=== PATIENT | male | born 1990 | race Hispanic/Latino ===

== ENCOUNTER 2020-12-29 19:30 | Emergency (ER) | payer SELFPAY ==
[2020-12-29] MEDS ORDERED: BUPIVACAINE 0.5% PF 10 ML VIAL ONE (21:02)
[2020-12-29] MEDS ORDERED: HYDROCODONE/APAP 7.5/325 MG TAB ONE (21:02)
[2020-12-29] MEDS ORDERED: LIDOCAINE 1% W/EPI 1:100,000 MDV 20 ML VIAL ONE (21:02)
--- NOTE | 2020-12-29 21:30 | EDPHYS ---
Physician Documentation [facility] Name: Marcelino Schroeder Age: 30 yrs Sex: Male : 1990 Arrival Date: 12/29/2020 Time: 19:37 Bed 15 Private MD: ED Physician Tiffany Byrd HPI: 12/29 20:40 This 30 yrs old Male presents to ER via Ambulatory with complaints of BUMP ON cp LOWER BACK. 20:40 the patient presents with a swollen area of the coccyx. cp 20:40 Description: draining, swollen, tense. Onset: The symptoms/episode began/occurred 1 cp day(s) ago. Possible cause(s): unknown. Associated signs and symptoms: Pertinent negatives: fever. Historical: - Allergies: 19:43 No Known Allergies; ak2 - Immunization history:: Adult Immunizations up to date. - Social history:: Smoking status: Patient denies any tobacco usage or history of. ROS: 20:44 Eyes: Negative for injury, pain, redness, and discharge. cp 20:44 Constitutional: Negative for body aches, chills, fever, poor PO intake. 20:44 Cardiovascular: Negative for chest pain. 20:44 Respiratory: Negative for cough. 20:44 Abdomen/GI: Negative for abdominal pain. 20:44 Back: Positive for pain at rest, of the coccyx. 20:44 Neuro: Negative for altered mental status, headache, weakness. 20:44 All other systems are negative. Exam: 20:50 Constitutional: The patient appears in no acute distress, alert, awake, non-toxic, well cp developed, well nourished, uncomfortable. 20:50 Head/Face: Normocephalic, atraumatic. cp 20:50 Chest/axilla: Inspection: normal. 20:50 Cardiovascular: Rate: tachycardic. 20:50 Respiratory: the patient does not display signs of respiratory distress, Respirations: normal. 20:50 Abdomen/GI: Exam negative for discomfort, distension, guarding, Inspection: abdomen appears normal. 20:50 Skin: abscess, that is moderate sized, of the coccyx, with drainage, that is purulent. Vital Signs: 19:41 BP 142 / 89; Pulse 105; Resp 18; Temp 98.3(T); Pulse Ox 100% ; Weight 95.25 kg; Height ak2 5 ft. 10 in. (177.80 cm); 21:40 BP 133 / 75; Pulse 95; Resp 17; Pulse Ox 98% ; rr5 19:41 Body Mass Index 30.13 (95.25 kg, 177.80 cm) ak2 Procedures: 21:30 I \T\ D: Incision and drainage was performed for an abscess of the coccyx Prepped with cp Betadine, Anesthetized with 8 ccs of 50/50 mixture 1% lidocaine with epi and 0.5% marcaine. Incised with #11 blade. Drained moderate amount purulent fluid. Cultures obtained. Packed with iodoform gauze, Dressing: sterile 4x4 gauze, the patient tolerated the procedure well. MDM: 20:17 Patient medically screened. cp 21:00 Differential diagnosis: abscess, cellulitis. cp 21:30 Data reviewed: vital signs, nurses notes. cp 21:30 Counseling: I had a detailed discussion with the patient and/or guardian regarding: the cp historical points, exam findings, and any diagnostic results supporting the discharge/admit diagnosis, to return to the emergency department if symptoms worsen or persist or if there are any questions or concerns that arise at home. Response to treatment: the patient's symptoms have markedly improved after treatment, and as a result, I will discharge patient. 12/29 20:34 Order name: Wound Culture 12/29 20:34 Order name: I\T\D Setup; Complete Time: 20:50 cp Administered Medications: 20:49 Drug: Hydrocodone-Acetaminophen (7.5 mg-325 mg) 1 tabs Route: PO; ea 21:40 Follow up: Response: No adverse reaction; RASS: Alert and Calm (0) rr5 21:10 Drug: Marcaine (bupivacaine) (0.5 %) 10 ml {Note: per provider.} Volume: 10 ml; Route: ea Infiltration; 21:40 Follow up: Response: No adverse reaction rr5 21:10 Drug: Lidocaine-Epinephrine -1%: (1:100,000) 10 ml {Note: per provider.} Volume: 20 ml; ea Route: Infiltration; 21:40 Follow up: Response: No adverse reaction rr5 21:30 Drug: Clindamycin 600 mg Route: PO; rr5 21:40 Follow up: Response: No adverse reaction rr5 21:32 Drug: Bactrim (trimethoprim-sulfamethoxazole) (160 mg-800 mg (DS) 2 tablet Route: PO; rr5 21:40 Follow up: Response: Medication administered at discharge. rr5 Disposition: 12/29/20 21:30 Discharged to Home. Impression: Pilonidal cyst with abscess. - Condition is Stable. - Discharge Instructions: Incision and Drainage, Pilonidal Cyst. - Prescriptions for Clindamycin HCl 300 mg Oral Capsule - take 1 capsule by ORAL route every 6 hours for 10 days; 40 capsule. Tylenol- Codeine #3 300-30 mg Oral Tablet - take 2 tablets by ORAL route every 8-10 hours As needed; 15 tablet. Bactrim DS 800- 160 mg Oral Tablet - take 1 tablet by ORAL route every 12 hours for 10 days; 20 tablet. - Medication Reconciliation Form, Thank You Letter, Antibiotic Education, Prescription Opioid Use form. - Work release form (12/29/20 22:01). ak2 - Follow up: Denzel Aguiar MD; When: 48 Hours; Reason: Wound Recheck. - Problem is new. - Symptoms have improved. Signatures: Dispatcher [employer] EDMS Mina Epstein PA PA cp Orquidea Costello RN RN Kervin Stevens RN RN rr5 Luis Villatoro ak2 Corrections: (The following items were deleted from the chart) 21:48 21:30 12/29/2020 21:30 Discharged to Home. Impression: Pilonidal cyst with abscess. rr5 Condition is Stable. Forms are Medication Reconciliation Form, Thank You Letter, Antibiotic Education, Prescription Opioid Use. Follow up: Denzel Aguiar; When: 48 Hours; Reason: Wound Recheck. Problem is new. Symptoms have improved. cp
--- NOTE | 2020-12-29 21:30 | ER ---
Nurse's Notes [facility] Name: Marcelino Schroeder Age: 30 yrs Sex: Male : 1990 Arrival Date: 12/29/2020 Time: 19:37 Bed 15 Private MD: Diagnosis: Pilonidal cyst with abscess Presentation: 12/29 19:41 Chief complaint: Patient states: "bump above buttock x1 days. denies injury. ak2 Coronavirus screen: Client denies travel out of the [place] in the last 14 days. Ebola Screen: Patient negative for fever greater than or equal to 101.5 degrees Fahrenheit, and additional compatible Ebola Virus Disease symptoms Patient denies exposure to infectious person. Patient denies travel to an Ebola-affected area in the 21 days before illness onset. No symptoms or risks identified at this time. Initial Sepsis Screen: Does the patient meet any 2 criteria? No. Patient's initial sepsis screen is negative. Does the patient have a suspected source of infection? No. Patient's initial sepsis screen is negative. Risk Assessment: Do you want to hurt yourself or someone else? Patient reports no desire to harm self or others. Onset of symptoms was December 27, 2020. 19:41 Method Of Arrival: Ambulatory ak2 19:41 Acuity: GIOVANA 3 ak2 Triage Assessment: 19:43 General: Appears in no apparent distress. Behavior is calm, cooperative. Pain: Denies ak2 pain. Historical: - Allergies: 19:43 No Known Allergies; ak2 - Immunization history:: Adult Immunizations up to date. - Social history:: Smoking status: Patient denies any tobacco usage or history of. Screenin:10 Abuse screen: Denies threats or abuse. Denies injuries from another. Nutritional rr5 screening: No deficits noted. Tuberculosis screening: No symptoms or risk factors identified. Fall Risk None identified. Total Fisher Fall Scale indicates No Risk (0-24 pts). Assessment: 20:10 General: Appears in no apparent distress. uncomfortable, Behavior is calm, cooperative, rr5 appropriate for age. 20:10 Pain: Complains of pain in coccyx Pain currently is 8 out of 10 on a pain scale. rr5 Quality of pain is described as aching, Pain began gradually, Is intermittent. Neuro: Level of Consciousness is awake, alert, obeys commands, Oriented to person, place, time. Cardiovascular: Capillary refill < 3 seconds Patient's skin is warm and dry. Respiratory: Airway is patent Respiratory effort is even, unlabored, Respiratory pattern is regular, symmetrical. Derm: Skin temperature is warm Wound noted coccyx Wound is warm to touch, redness and hard at center. Musculoskeletal: Capillary refill < 3 seconds. 21:45 Reassessment: Patient appears in no apparent distress at this time. Patient is alert, rr5 oriented x 3, equal unlabored respirations, skin warm/dry/pink. discharge instruction given and explained without complaints made Patient states symptoms have improved. Vital Signs: 19:41 BP 142 / 89; Pulse 105; Resp 18; Temp 98.3(T); Pulse Ox 100% ; Weight 95.25 kg; Height ak2 5 ft. 10 in. (177.80 cm); 21:40 BP 133 / 75; Pulse 95; Resp 17; Pulse Ox 98% ; rr5 19:41 Body Mass Index 30.13 (95.25 kg, 177.80 cm) ak2 ED Course: 19:37 Patient arrived in ED. ag3 19:43 Triage completed. ak2 20:09 Kervin Bay, RN is Primary Nurse. rr5 20:10 Patient has correct armband on for positive identification. Bed in low position. Call rr5 light in reach. 20:10 Arm band placed on right wrist. rr5 20:15 Mina Epstein PA is PHCP. cp 20:15 Tiffany Byrd MD is Attending Physician. cp 21:25 Assist provider with I \\T\\ D: of an abscess on pilonidal cyst Set up I\\T\\D tray. Performed rr 5 by Mina AVILA Culture sent to lab. Wound packed. 4X4s, Dressing with 4X4s, Patient tolerated well. 21:25 Patient did not have IV access during this emergency room visit. rr5 21:29 Denzel Aguiar MD is Referral Physician. cp Administered Medications: 20:49 Drug: Hydrocodone-Acetaminophen (7.5 mg-325 mg) 1 tabs Route: PO; ea 21:40 Follow up: Response: No adverse reaction; RASS: Alert and Calm (0) rr5 21:10 Drug: Marcaine (bupivacaine) (0.5 %) 10 ml {Note: per provider.} Volume: 10 ml; Route: ea Infiltration; 21:40 Follow up: Response: No adverse reaction rr5 21:10 Drug: Lidocaine-Epinephrine -1%: (1:100,000) 10 ml {Note: per provider.} Volume: 20 ml; ea Route: Infiltration; 21:40 Follow up: Response: No adverse reaction rr5 21:30 Drug: Clindamycin 600 mg Route: PO; rr5 21:40 Follow up: Response: No adverse reaction rr5 21:32 Drug: Bactrim (trimethoprim-sulfamethoxazole) (160 mg-800 mg (DS) 2 tablet Route: PO; rr5 21:40 Follow up: Response: Medication administered at discharge. rr5 Outcome: 21:30 Discharge ordered by MD. cp 21:48 Discharged to home ambulatory. rr5 21:48 Condition: stable 21:48 Discharge instructions given to patient, Instructed on discharge instructions, follow rr5 up and referral plans. medication usage, Demonstrated understanding of instructions, follow-up care, medications, Prescriptions given X 3. 21:48 Patient left the ED. rr5 Signatures: Mina Esptein PA PA cp Antunez, Elena, RN RN Dorota Gardiner ag3 Kervin Bay RN RN rr5 Luis Villatoro2
[2020-12-29] MEDS ORDERED: SMZ./TMP. 800/160 MG TABLET ONE (21:49)
[2020-12-29 23:08] VITALS: BP 142/89; TEMP 98.3; O2SAT 100
== END 2020-12-29 21:48 | disposition home or self-care (01) ==
LOC: ER 19:30
PROC: 0J970ZZ Drainage of Back Subcutaneous Tissue and Fascia, Open Approach (ICD-10-PCS; principal; 2020-12-29)
DX: L02.212 Cutaneous abscess of back [any part, except buttock and flank] (principal)
CPT/HCPCS: 87070; 87205; 99284